=== PATIENT | male | born 1960 | race Caucasian/White ===

== ENCOUNTER 2022-06-05 16:22 | Emergency (ER) | payer OTHER ==
[~2022-06-05 16:22] MED LIST: Iopamidol-370 76% 500 ML MDV (1 ML CHARGE) ONE
[2022-06-05 17:21] LABS: Bilirubin Negative (Negative); Blood, Urine Negative (Negative); Clarity Clear (Clear); Glucose, Urine (Dipstick) Normal (Negative); Ketone, Urine Negative (Negative); Leukocyte Negative Leu/uL (Negative); Nitrite Negative (Negative); Protein, Urine (Dipstick) 20 mg/dL (Neg-Trace); Specific Gravity, Urine 1.026 (1.002-1.036); Urobilinogen Normal mg/dL (Less than 2)
[2022-06-05 17:40] LABS: #Basophils 0.1 thou/uL (0.0-0.2); #Eosinphils 0.2 thou/uL (0.0-0.7); #Lymphocytes 2.4 thou/uL (1.20-3.40); #Monocytes 0.8 thou/uL (0.11-0.59); #Neutrophils 8.3 thou/uL (1.40-6.50); %Basophils 0.5 % (0.0-1.0); %Lymphocytes 20.5 % (21.0-51.0); Hemoglobin 16.6 g/dL (14.0-18.0); Mean Corpuscular Hemoglobin 31.6 pg (27.0-31.0); Mean Corpuscular Volume 95.9 fl (78.0-98.0); Mean Platelet Volume 6.5 fL (7.4-10.4); Platelet Count 269 10x3/uL (130-400); RBC Distribution Width 12.8 % (11.5-14.5); Red Blood Cell (RBC) Count 5.26 mill/uL (4.70-6.10); White Blood Cell (WBC) Count 11.9 10x3/uL (4.8-10.8)
[2022-06-05] MEDS ORDERED: Ondansetron PF 4 MG/2 ML Vial ONE (17:40)
[2022-06-05] MEDS ORDERED: Pantoprazole 40 MG VIAL ONE (18:04)
[2022-06-05] MEDS ORDERED: FENTANYL 50 MCG/ML 1 ML VIAL ONE (18:04)
[2022-06-05 18:34] LABS: Albumin 4.2 g/dL (3.4-4.8)
[2022-06-05 18:35] LABS: Calcium 9.6 mg/dL (7.8-10.44); Chloride 103 mmol/L (98-107); Potassium 4.7 mmol/L (3.5-5.1); Sodium 134 mmol/L (136-145)
[2022-06-05 18:36] LABS: Globulin 3.6 g/dL (2.4-3.5); Glucose 98 mg/dL (80-115); Protein, Total 7.8 g/dL (5.8-8.1)
[2022-06-05 18:38] LABS: Anion Gap 16 mmol/L (10-20); Carbon Dioxide 20 mmol/L (23-31)
[2022-06-05 18:39] LABS: Alkaline Phosphatase 75 U/L (40-110)
[2022-06-05 18:40] LABS: BUN (Urea Nitrogen) 18 mg/dL (8.4-25.7); Calc. Creatinine Clearance 0 mL/min (70-130); Estimated GFR 56
[2022-06-05 18:41] LABS: AST (SGOT) 27 U/L (5-34)
[2022-06-05 18:42] LABS: ALT (SGPT) 23 U/L (8-55)
[2022-06-05] MEDS ORDERED: Promethazine HCl 12.5 MG in Sodium Chloride 0.9% 50 ML IVPB SCH (20:45)
[2022-06-05 21:15] LABS: Lipase 51 U/L (8-78)
== END 2022-06-05 21:09 | disposition home or self-care (01) ==
LOC: ERS 16:22
DX: K52.9 Noninfective gastroenteritis and colitis, unspecified (principal); D72.829 Elevated white blood cell count, unspecified; I10 Essential (primary) hypertension; F17.220 Nicotine dependence, chewing tobacco, uncomplicated
CPT/HCPCS: 36415; 71275; 74174; 80053; 81003; 83690; 84484; 85025; 86900; 86901; 93005; 96374; 96375; C9113; J2405; J2550; J3010; Q9967